=== PATIENT | male | born 1955 | race Caucasian/White ===

== ENCOUNTER 2022-05-31 10:51 | Emergency (ER) | payer MEDICARE | END 2022-05-31 15:46 | disposition home or self-care (01) | LOC: MADERS 10:51 | DX: S70.01XA Contusion of right hip, initial encounter (principal); F17.220 Nicotine dependence, chewing tobacco, uncomplicated; W19.XXXA Unspecified fall, initial encounter | CPT/HCPCS: 72192 ==